=== PATIENT | female | born 2000 | race Two or more races ===

== ENCOUNTER 2023-09-28 13:32 | Inpatient (IN) | payer BC, OTHER ==
[~2023-09-28] VITALS: Ht 170.2 cm; Wt 99.0 kg
[2023-09-28] MEDS ORDERED: insulin pump (13:49)
[2023-09-28] MEDS: NS 1,000 ML IV ONE (14:48)
[2023-09-28] MEDS: ONDANSETRON 4MG 2ML VIAL IV ONE (14:48)
[2023-09-28 15:04] LABS: VENOUS BASE EXCESS -1.3 (-2.0-2.0); VENOUS HCO3 23.8 MMOL/L (23.0-27.0); VENOUS O2 SATURATION 85.3 % (60.0-80.0); VENOUS PARTIAL PRESSURE CO2 41.4 mmHg (38.0-50.0); VENOUS PH 7.377 UNITS (7.330-7.430); VENOUS STANDARD HCO3 23.1 MMOL/L
[2023-09-28 15:22] LABS: BASO # 0.1 10^3/uL (0.0-0.2); BASO % 0.5 % (0.0-1.0); EOS % 0.3 % (0.0-3.0); HEMATOCRIT 39.7 % (36.0-47.0); HEMOGLOBIN 13.2 g/dl (12.0-15.5); LYMPH # 1.5 10^3/uL (1.5-5.0); LYMPH % 16.1 % (24.0-44.0); MEAN CORPUSCULAR HEMOGLOBIN 29.8 pg (27.0-33.0); MEAN CORPUSCULAR HGB CONC 33.2 g/dl (32.0-36.5); MEAN CORPUSCULAR VOLUME 89.6 fl (80.0-96.0); MONO # 0.7 10^3/uL (0.0-0.8); MONO % 7.3 % (2.0-8.0); NEUTROPHILS # 7.2 10^3/uL (1.5-8.5); PLATELET COUNT, AUTOMATED 314 10^3/uL (150-450); RED BLOOD COUNT 4.43 10^6/uL (4.00-5.40); WHITE BLOOD COUNT 9.6 10^3/uL (4.0-10.0)
[2023-09-28 15:35] LABS: LIPASE 20 U/L (12-53)
[2023-09-28 15:37] LABS: ACETONE/KETONE 0.66 MMOL/L (0.02-0.27); ALBUMIN 4.1 G/DL (3.2-5.2); ALKALINE PHOSPHATASE 68 U/L (46-116); ALT/SGPT 28 U/L (7.0-40); AST/SGOT 43 U/L (<34); BILIRUBIN,DIRECT 0.2 MG/DL (<0.4); BILIRUBIN,TOTAL 0.6 MG/DL (0.3-1.2); BLOOD UREA NITROGEN 7 MG/DL (9-23); CARBON DIOXIDE LEVEL 26 MMOL/L (20-31); CHLORIDE LEVEL 102 MMOL/L (98-107); CK-MB VALUE MASS 8.4 NG/ML (<3.6); CREATININE FOR GFR 0.49 MG/DL (0.55-1.30); GLOMERULAR FILTRATION RATE > 60.0 (>60); GLUCOSE, FASTING 194 MG/DL (60-100); HCG, SERUM QUALITATIVE NEGATIVE (NEGATIVE); POTASSIUM SERUM 3.9 MMOL/L (3.5-5.1); SODIUM LEVEL 137 MMOL/L (136-145); TOTAL PROTEIN 7.1 G/DL (5.7-8.2)
[2023-09-28 15:49] LABS: CPK CREATINE PHOSPHOKINASE 1627 U/L (34-145); MB/CK RELATIVE INDEX 0.51 (< OR =4)
[2023-09-28 15:55] LABS: OSMOLALITY SERUM 293 MOSM/KG (275-295)
[2023-09-28 16:56] LABS: CK-MB VALUE MASS 6.7 NG/ML (<3.6)
[2023-09-28 17:13] LABS: MB/CK RELATIVE INDEX 0.52 (< OR =4)
[2023-09-28] MEDS: NS 1,000 ML IV SCH ×2 (17:33→20:00)
[2023-09-28] MEDS ORDERED: ARIP1TAB6 PO (17:52)
[2023-09-28] MEDS ORDERED: TRAZ-252 PO (17:52)
[2023-09-28] MEDS ORDERED: METO10TA3 PO (17:52)
[2023-09-28] MEDS ORDERED: INSUH10VL INJ (17:52)
[2023-09-28] MEDS ORDERED: BUSP10TA PO (17:52)
[2023-09-28] MEDS ORDERED: CITA20TA6 PO (17:53)
[2023-09-28] MEDS ORDERED: HOME MED LIST COMPLETE! XX SCH (18:00)
[2023-09-28] MEDS: METOCLOPRAMIDE INJ 10MG/2ML VIAL IV SCH (20:00)
[2023-09-28] MEDS: PANTOPRAZOLE 40MG VIAL IV SCH (20:00)
[2023-09-28 20:41] VITALS: BP 115/64; TEMP 98.1; O2SAT 99
[2023-09-28] MEDS: busPIRone 10 MG TAB PO SCH (21:18)
[2023-09-28] MEDS ORDERED: GLUCOSE 4 GM CHEW PO PRN (22:15)
[2023-09-28] MEDS ORDERED: GLUCAGON INJ 1MG VIAL SC PRN (22:15)
[2023-09-28] MEDS ORDERED: DEXTROSE 50% 50ML SYRINGE IV PRN (22:15)
[2023-09-29] MEDS: INSULIN LISPRO (NovoLOG) PER UNIT SC ONE (02:10)
[2023-09-29 06:00] VITALS: BP 100/59; TEMP 98.1; O2SAT 95
[2023-09-29 06:40] LABS: BASO % 0.5 % (0.0-1.0); EOS # 0.1 10^3/uL (0.0-0.5); EOS % 1.2 % (0.0-3.0); HEMATOCRIT 34.6 % (36.0-47.0); HEMOGLOBIN 11.3 g/dl (12.0-15.5); LYMPH # 2.6 10^3/uL (1.5-5.0); LYMPH % 34.1 % (24.0-44.0); MEAN CORPUSCULAR HEMOGLOBIN 30.1 pg (27.0-33.0); MEAN CORPUSCULAR HGB CONC 32.7 g/dl (32.0-36.5); MONO # 0.7 10^3/uL (0.0-0.8); MONO % 9.1 % (2.0-8.0); NEUTROPHILS # 4.1 10^3/uL (1.5-8.5); PLATELET COUNT, AUTOMATED 257 10^3/uL (150-450); RED BLOOD COUNT 3.76 10^6/uL (4.00-5.40); WHITE BLOOD COUNT 7.6 10^3/uL (4.0-10.0)
[2023-09-29 07:05] LABS: BLOOD UREA NITROGEN 7 MG/DL (9-23); CALCIUM LEVEL 8.2 MG/DL (8.5-10.1); CARBON DIOXIDE LEVEL 23 MMOL/L (20-31); CHLORIDE LEVEL 106 MMOL/L (98-107); CREATININE FOR GFR 0.56 MG/DL (0.55-1.30); GLOMERULAR FILTRATION RATE > 60.0 (>60); GLUCOSE, FASTING 209 MG/DL (60-100); SODIUM LEVEL 138 MMOL/L (136-145)
[2023-09-29 07:50] LABS: CPK CREATINE PHOSPHOKINASE 524 U/L (34-145)
[2023-09-29] MEDS: CitaloPRAM (CeleXA) 10 MG TABLET PO SCH (09:19)
[2023-09-29] MEDS: INSULIN LISPRO (NovoLOG) PER UNIT SC SCH ×2 (09:21→12:00)
[2023-09-29] MEDS: ONDANSETRON 4MG 2ML VIAL IV PRN (09:50)
[2023-09-29] MEDS: KETOROLAC 30 MG/ML 1ML VIAL IV ONE (10:17)
[2023-09-29 14:14] VITALS: BP 108/65; TEMP 98.1; O2SAT 97
[2023-09-29] MEDS: HALOPERIDOL LACTATE 5MG/ML VIAL IV ONE (15:22)
[2023-09-29 15:51] LABS: HEMOGLOBIN A1c 7.2 % (4.0-6.0)
[2023-09-29 20:12] VITALS: BP 111/69; TEMP 98.2; O2SAT 98
[2023-09-29] MEDS ORDERED: INSULIN LISPRO (NovoLOG) PER UNIT SC SCH (21:00)
[2023-09-30 05:08] VITALS: BP 106/73; TEMP 97.9; O2SAT 98
[2023-09-30 07:26] LABS: BLOOD UREA NITROGEN 6 MG/DL (9-23); CALCIUM LEVEL 8.1 MG/DL (8.5-10.1); CARBON DIOXIDE LEVEL 20 MMOL/L (20-31); CHLORIDE LEVEL 106 MMOL/L (98-107); CREATININE FOR GFR 0.51 MG/DL (0.55-1.30); GLOMERULAR FILTRATION RATE > 60.0 (>60); GLUCOSE, FASTING 216 MG/DL (60-100); SODIUM LEVEL 136 MMOL/L (136-145)
[2023-09-30 07:37] LABS: BASO % 0.5 % (0.0-1.0); EOS % 0.7 % (0.0-3.0); HEMATOCRIT 32.3 % (36.0-47.0); HEMOGLOBIN 10.9 g/dl (12.0-15.5); LYMPH # 2.1 10^3/uL (1.5-5.0); LYMPH % 36.7 % (24.0-44.0); MEAN CORPUSCULAR HEMOGLOBIN 30.5 pg (27.0-33.0); MEAN CORPUSCULAR HGB CONC 33.7 g/dl (32.0-36.5); MEAN CORPUSCULAR VOLUME 90.5 fl (80.0-96.0); MONO # 0.4 10^3/uL (0.0-0.8); MONO % 7.4 % (2.0-8.0); NEUTROPHILS % 53.6 % (36.0-66.0); RED BLOOD COUNT 3.57 10^6/uL (4.00-5.40); WHITE BLOOD COUNT 5.6 10^3/uL (4.0-10.0)
[2023-09-30 07:40] LABS: PLATELET COUNT, AUTOMATED 160 10^3/uL (150-450)
[2023-09-30] MEDS: KETOROLAC 30 MG/ML 1ML VIAL IV PRN (07:52)
[2023-09-30] MEDS: LEVEMIR (INSULIN DETEMIR) 1 UNITS/0.01ML SC SCH (09:42)
[2023-09-30] MEDS: PROCHLORPERAZINE 10MG 2ML VIAL IV PRN (10:31)
[2023-09-30 14:00] VITALS: BP 127/74; TEMP 98.1; O2SAT 97
[2023-09-30 20:40] VITALS: BP 109/62; TEMP 98.2; O2SAT 97
[2023-10-01 05:59] LABS: BASO % 0.4 % (0.0-1.0); EOS % 0.4 % (0.0-3.0); HEMOGLOBIN 10.9 g/dl (12.0-15.5); LYMPH # 2.2 10^3/uL (1.5-5.0); LYMPH % 32.1 % (24.0-44.0); MEAN CORPUSCULAR HEMOGLOBIN 30.1 pg (27.0-33.0); MEAN CORPUSCULAR VOLUME 91.2 fl (80.0-96.0); MONO # 0.5 10^3/uL (0.0-0.8); MONO % 7.1 % (2.0-8.0); NEUTROPHILS # 4.1 10^3/uL (1.5-8.5); NEUTROPHILS % 59.3 % (36.0-66.0); PLATELET COUNT, AUTOMATED 255 10^3/uL (150-450); RED BLOOD COUNT 3.62 10^6/uL (4.00-5.40); WHITE BLOOD COUNT 6.9 10^3/uL (4.0-10.0)
[2023-10-01 06:29] LABS: BLOOD UREA NITROGEN < 5 MG/DL (9-23); CARBON DIOXIDE LEVEL 21 MMOL/L (20-31); CHLORIDE LEVEL 108 MMOL/L (98-107); CREATININE FOR GFR 0.53 MG/DL (0.55-1.30); GLOMERULAR FILTRATION RATE > 60.0 (>60); GLUCOSE, FASTING 135 MG/DL (60-100); POTASSIUM SERUM 3.7 MMOL/L (3.5-5.1); SODIUM LEVEL 140 MMOL/L (136-145)
[2023-10-01] MEDS ORDERED: PROC25SU27 PR (13:30)
[2023-10-01] MEDS ORDERED: ONDA4TAB6 SL (13:30)
[2023-10-01] MEDS ORDERED: PEN-61 SC (13:38)
== END 2023-10-01 14:04 | disposition left against medical advice (07) | DRG 241 ==
LOC: M ED 13:32 → M ED INP 19:00 → M MSPAV 20:42
PROVIDERS: ADMIT Internal Medicine Nephrology; ATTEND Internal Medicine Nephrology
DX: K29.20 Alcoholic gastritis without bleeding (principal); M62.82 Rhabdomyolysis; K31.84 Gastroparesis; E10.43 Type 1 diabetes mellitus with diabetic autonomic (poly)neuropathy; F12.188 Cannabis abuse with other cannabis-induced disorder; J45.909 Unspecified asthma, uncomplicated; E66.9 Obesity, unspecified; R11.2 Nausea with vomiting, unspecified; Z88.8 Allergy status to other drugs, medicaments and biological substances; Z79.899 Other long term (current) drug therapy; F41.9 Anxiety disorder, unspecified; F32.A Depression, unspecified; Z91.148 Patient's other noncompliance with medication regimen for other reason